=== PATIENT | male | born 1970 | race American Indian/Alaskan Native ===

== ENCOUNTER 2017-02-27 23:14 | Emergency (ER) | payer SELFPAY ==
--- NOTE | 2017-03-02 00:37 | ED Elopement Review ---
ED Pt Elopement review - Call Back decision Pt Call Back Decision: No action required
== END 2017-02-28 05:15 | disposition left against medical advice (07) ==
LOC: ED 23:14
DX: R06.09 Other forms of dyspnea (principal); Z53.21 Procedure and treatment not carried out due to patient leaving prior to being seen by health care provider
CPT/HCPCS: 93005; 93010